=== PATIENT | male | born 1935 | race Caucasian/White ===

== ENCOUNTER 2016-06-27 14:05 | Inpatient (IN) | payer OTHER, BC ==
--- NOTE | 2016-06-27 14:14 | PDOC ---
History of Present Illness - General History Source: Patient Exam Limitations: No Limitations - History of Present Illness Initial Comments: 06/27/16 14:33 The patient is a 81 year old male with a significant past medical history of restless leg, neuropathy, tardive dyskinesia, depression with agitation, and spinal stenosis, who presents to the ED accompanied with for weakness in the legs and arms bilaterally. Patient states the weakness first began yesterday. He denies fever, but is shown to have a temp of 99.9 degrees upon presentation. He denies chest pain, SOB, chills. He denies dysuria, frequency, hematuria. Past Surgical History: Hernia Repair (right inguinal hernia), cervical laminectomy PCP: Dr. Tae Cook <Paul Ruffin - Last Filed: 06/27/16 17:28> <Serge Vaughan - Last Filed: 06/27/16 18:23> - General Chief Complaint: Weakness Stated Complaint: WEAKNESS Time Seen by Provider: 06/27/16 14:14 Past History <Paul Ruffin - Last Filed: 06/27/16 17:28> - Past Medical History Anemia: No Asthma: No Cancer: No Cardiac Disorders: No CVA: No COPD: No CHF: No Dementia: No Diabetes: No GI Disorders: No Disorders: Yes (urinary incontinence) HTN: No Hypercholesterolemia: No Liver Disease: No Psychiatric Problems: Yes (DEPRESSION, TARDIVE DYSKINESIA) Seizures: No Thyroid Disease: No - Surgical History Abdominal Surgery: No Appendectomy: No Cardiac Surgery: No Cholecystectomy: No Gastric Stapling: No Lung Surgery: No Neurologic Surgery: No Orthopedic Surgery: Yes (UPPER BACK SURGERY 2009) - Immunization History Td Vaccination: Yes (2012) - Psycho/Social/Smoking Cessation Hx Anxiety: Yes Suicidal Ideation: No Smoking Status: No Smoking History: Former smoker Have you smoked in the past 12 months: No Number of Cigarettes Smoked Daily: 0 If you are a former smoker, when did you quit?: 1989 Hx Alcohol Use: No Drug/Substance Use Hx: No Substance Use Type: None Hx Substance Use Treatment: No <Serge Vaughan - Last Filed: 06/27/16 18:23> - Past Medical History Allergies/Adverse Reactions: Allergies Allergy/AdvReac Type Severity Reaction Status Date / Time No Known Allergies Allergy Verified 06/27/16 14:08 Home Medications: Ambulatory Orders Gabapentin 600 mg PO TID 06/20/14 Lorazepam [Ativan] 0.5 mg PO HS 06/20/14 Multivitamins [Multivit ([facility] Formulary)] 1 tab PO DAILY 06/20/14 Tetrabenazine [Xenazine] 25 mg PO BID 06/20/14 Review of Systems - Review of Systems Comments:: 06/27/16 14:38 GENERAL/CONSTITUTIONAL: No chills. + weakness in arms and legs bilaterally. HEAD, EYES, EARS, NOSE AND THROAT: No change in vision. No ear pain or discharge. No sore throat. CARDIOVASCULAR: No chest pain or shortness of breath. RESPIRATORY: No cough, wheezing, or hemoptysis. GASTROINTESTINAL: No nausea, vomiting, diarrhea or constipation. GENITOURINARY: No dysuria, frequency, or change in urination. MUSCULOSKELETAL: No joint or muscle swelling or pain. No neck or back pain. SKIN: No rash NEUROLOGIC: No headache, vertigo, loss of consciousness, or change in strength/ sensation. ENDOCRINE: No increased thirst. No abnormal weight change. HEMATOLOGIC/LYMPHATIC: No anemia, easy bleeding, or history of blood clots. ALLERGIC/IMMUNOLOGIC: No hives or skin allergy. <Paul Ruffin - Last Filed: 06/27/16 17:28> *Physical Exam - Vital Signs Last Vital Signs Temp Pulse Resp BP Pulse Ox 99.9 F H 86 18 113/73 95 06/27/16 14:11 06/27/16 14:11 06/27/16 14:11 06/27/16 14:11 06/27/16 14:11 - Physical Exam Comments: 06/27/16 14:39 GENERAL: Awake, alert, and fully oriented, in no acute distress HEAD: No signs of trauma EYES: PERRLA, EOMI, sclera anicteric, conjunctiva clear. Arcus senilis ENT: Auricles normal inspection, hearing grossly normal, nares patent, oropharynx clear without exudates. Moist mucosa NECK: Normal ROM, supple, no lymphadenopathy, JVD, or masses LUNGS: Breath sounds equal, clear to auscultation bilaterally. No wheezes, and no crackles HEART: Regular rate and rhythm, normal S1 and S2, no murmurs, rubs or gallops ABDOMEN: Soft, nontender, normoactive bowel sounds. No guarding, no rebound. No masses EXTREMITIES: Normal range of motion, no edema. No clubbing or cyanosis. No cords, erythema, or tenderness NEUROLOGICAL: Cranial nerves II through XII grossly intact. No focal deficits. Normal speech, normal gait SKIN: Warm, Dry, normal turgor, no rashes or lesions noted. <Paul Ruffin - Last Filed: 06/27/16 17:28> Heart Score/ECG Review - ECG Intrepretation Comment:: 06/27/16 14:40 Unchanged from 12/11/14 Right bundle branch block. Rate of 79 T-wave inversions in the inferior lateral leads. <Paul Ruffin - Last Filed: 06/27/16 17:28> ED Treatment Course - LABORATORY CBC & Chemistry Diagram: 06/27/16 14:45 06/27/16 14:45 - RADIOLOGY Radiology Studies Ordered: 06/27/16 15:23 EXAM#: TYPE/EXAM: RESULT: [id number] RAD/CHEST X-RAY PORTABLE* Chest: Weakness A single view reveals scoliosis with convexity to the right, prominent heart, unfolded aorta, hiatal hernia, mamillation right hemidiaphragm with elevation and no sign of an acute chest process. There is suggestion of old rib trauma. Since 12/11/2014, there is a better inspiration and slightly less prominent mediastinum. The hiatal hernia appears smaller. <Paul Ruffin - Last Filed: 06/27/16 17:28> - LABORATORY CBC & Chemistry Diagram: 06/27/16 14:45 06/27/16 14:45 - ADDITIONAL ORDERS Additional order review: 06/27/16 18:[address] Cook, will admit pt for urosepsis. Family is in agreement with plan, FLU negative. <Serge Vaughan - Last Filed: 06/27/16 18:23> Medical Decision Making - Medical Decision Making 06/27/16 16:[address] Tae Cook. <Paul Ruffin - Last Filed: 06/27/16 17:28> *DC/Admit/Observation/Transfer - Attestations Scribe Attestion: 06/27/16 14:40 Documentation prepared by Paul Ruffin, acting as medical oncology physician for Serge Vaughan MD. <Paul Ruffin - Last Filed: 06/27/16 17:28> - Discharge Dispostion Admit: Yes <Serge Vaughan - Last Filed: 06/27/16 18:23> Diagnosis at time of Disposition: Sepsis due to urinary tract infection UTI (urinary tract infection) Qualifiers: Urinary tract infection type: acute cystitis Hematuria presence: without hematuria Qualified Code(s): N30.00 - Acute cystitis without hematuria Fever Qualifiers: Fever type: unspecified Qualified Code(s): R50.9 - Fever, unspecified - Discharge Dispostion Condition at time of disposition: Stable - Referrals Referrals: Tae Cook MD [Primary Care Provider] -
[2016-06-27 14:18] VITALS: BMI 20.3
[2016-06-27] MEDS ORDERED: SODIUM CHLORIDE 1,000 ML IV SCH (14:30)
[2016-06-27 15:23] LABS: BASOPHIL 1.2 % (0-2.0); EOSINOPHIL 0.2 % (0-4.5); MCH 27.8 pg (25.7-33.7); MCHC 32.4 g/dl (32.0-35.9); MEAN CELL VOLUME 85.9 fl (80-96); MEAN PLT VOLUME 9.9 fl (7.5-11.1); NEUTROPHILS 89.8 % (42.8-82.8); PLATELET COUNT 152 K/MM3 (134-434); WHITE BLOOD COUNT 13.2 K/mm3 (4.0-10.8)
[2016-06-27 15:27] LABS: ALBUMIN 3.5 g/dl (3.5-5.0); ALK PHOS 67 U/L (32-92); ANION GAP 10 (8-16); BILIRUBIN,TOTAL 0.8 mg/dl (0.2-1.0); CALCIUM 9.8 mg/dl (8.4-10.2); CO2 22 mmol/L (22-28); CPK(DFH) 70 IU/L (38-174); CREATININE 1.4 mg/dl (0.6-1.3); GLUCOSE,RANDOM 95 mg/dl (74-106); SGOT/AST 19 U/L (10-42); SGPT/ALT 10 U/L (10-40); TOT PROT 6.4 g/dl (6.4-8.3)
[2016-06-27 15:39] LABS: COCKROFT - GAULT NT
[2016-06-27 16:09] LABS: TROPONIN I (DFP) < 0.03 ng/ml (0.03-0.50)
[2016-06-27] MEDS ORDERED: ACETAMINOPHEN 650 MG/20.3 ML ORAL SOLUTION (CUPS) PO ONE (16:17)
[2016-06-27] MEDS ORDERED: ACETAMINOPHEN 325 MG TABLET (FP) ONE (16:26)
[2016-06-27 17:10] LABS: PH,URINE 5.5 (4.5-8); URINE BILIRUBIN Negative (NEGATIVE); URINE GLUCOSE (UA) Negative (NEGATIVE); URINE KETONE Trace (NEGATIVE); URINE NITRITE Negative (NEGATIVE); URINE UROBILINOGEN 0.2 E.U/dl (0.2-1.0)
[2016-06-27 17:20] LABS: URINE APPEARANCE SL CLOUDY; URINE BLOOD 2+ (NEGATIVE); URINE COLOR YELLOW; URINE LEUK ESTERASE 1+ (NEGATIVE); URINE PROTEIN 1+ (NEGATIVE)
[2016-06-27 17:30] LABS: URINE RBC 20-30 /hpf (0-3)
[2016-06-27 17:31] LABS: URINE BACTERIA MODERATE /hpf (NEGATIVE)
[2016-06-27] MEDS ORDERED: LEVOFLOXACIN 500 MG IVPB 100 ML IVPB ONE ×2 (17:53→18:09)
--- NOTE | 2016-06-27 19:39 | PDOC ---
*Physical Exam - Vital Signs Last Vital Signs Temp Pulse Resp BP Pulse Ox 98.5 F 89 20 106/66 96 06/27/16 19:10 06/27/16 19:10 06/27/16 19:10 06/27/16 19:10 06/27/16 19:10 ED Treatment Course - LABORATORY CBC & Chemistry Diagram: 06/27/16 14:45 06/27/16 14:45 - ADDITIONAL ORDERS Additional order review: Laboratory Results 06/27/16 06/27/16 06/27/16 16:40 14:45 14:45 Sodium Potassium Chloride Carbon Dioxide Anion Gap BUN Creatinine Creat Clearance w eGFR Random Glucose Lactic Acid 1.365 Calcium Total Bilirubin AST ALT Alkaline Phosphatase Creatine Kinase 70 Troponin I < 0.03 L Total Protein Albumin Urine Color Yellow Urine Appearance Sl cloudy Urine pH 5.5 D Ur Specific [place] 1.015 Urine Protein 1+ H Urine Glucose (UA) Negative Urine Ketones Trace Urine Blood 2+ H Urine Nitrite Negative Urine Bilirubin Negative Urine Urobilinogen 0.2 e.u/dl Ur Leukocyte Esterase 1+ H Urine RBC 20-30 Urine WBC 10-20 Ur Epithelial Cells Few Amorphous Urates Few Urine Bacteria Moderate 06/27/16 14:45 Sodium 138 Potassium 4.2 Chloride 106 Carbon Dioxide 22 Anion Gap 10 BUN 16 D Creatinine 1.4 H Creat Clearance w eGFR 48.64 Random Glucose 95 D Lactic Acid Calcium 9.8 Total Bilirubin 0.8 D AST 19 D ALT 10 D Alkaline Phosphatase 67 Creatine Kinase Troponin I Total Protein 6.4 Albumin 3.5 Urine Color Urine Appearance Urine pH Ur Specific [place] Urine Protein Urine Glucose (UA) Urine Ketones Urine Blood Urine Nitrite Urine Bilirubin Urine Urobilinogen Ur Leukocyte Esterase Urine RBC Urine WBC Ur Epithelial Cells Amorphous Urates Urine Bacteria 06/27/16 16:30 Influenza Types A,B Antigen (MORALES) - Final Nasopharyngeal Swab - Final 06/27/16 14:45 RBC 4.67 MCV 85.9 MCHC 32.4 RDW 17.0 H D MPV 9.9 Neutrophils % 89.8 H Lymphocytes % 3.1 L D Monocytes % 5.7 D Eosinophils % 0.2 D Basophils % 1.2 D - Medications Given in the ED: ED Medications Discontinued Medications Generic Name Dose Route Start Last Admin Trade Name Freq PRN Reason Stop Dose Admin Acetaminophen 650 mg 06/27/16 16:17 06/27/16 16:32 Tylenol Oral Solution - PO 06/27/16 16:18 650 mg ONCE ONE Administration Levofloxacin 100 mls @ 100 mls/hr 06/27/16 17:53 06/27/16 18:13 Levaquin 500 Mg Premixed Ivpb - IVPB 06/27/16 18:52 100 mls/hr ONCE ONE Administration Progress Note - Progress Note Progress Note: Care of this patient received from Dr. Vaughan. Patient admitted to Dr Cook's service with urosepsis. At approximately 9PM, patient complained of difficulty breathing and expiratory wheezing heard bilaterally. portable CXR performed showing small right pleural effusion/ cardiomegaly and atelectasis vs infiltrate left base Although the patient has no history of asthma, albuterol nebulizer treatment given. Patient had subsequent resolution of wheezing The patient takes Ativan nightly. He was given 0.5mg Ativan for anxiety/ agitation. Patient developed fever to 102.9 Fahrenheit. Patient received 975mg Acetaminophen and Vancomycin 1 g IV administered as per Dr Cook Medical Decision Making - Medical Decision Making 06/28/16 04:17 Patient sleeping comfortably. HR 75/min; sat 95%; BP83/56 Bolus of 250ml NS IV over 1 hour to be given *DC/Admit/Observation/Transfer Diagnosis at time of Disposition: Sepsis due to urinary tract infection UTI (urinary tract infection) Qualifiers: Urinary tract infection type: acute cystitis Hematuria presence: without hematuria Qualified Code(s): N30.00 - Acute cystitis without hematuria Fever Qualifiers: Fever type: unspecified Qualified Code(s): R50.9 - Fever, unspecified - Discharge Dispostion Condition at time of disposition: Stable - Referrals - Patient Instructions - Post Discharge Activity
[2016-06-27] MEDS: SODIUM CHLORIDE 1,000 ML IV SCH (19:45)
[2016-06-27] MEDS ORDERED: ALBUTEROL SO4 0.5 % INH SOLN 2.5 MG/0.5 ML VIAL.NEB. NEB ONE (21:08)
[2016-06-27] MEDS ORDERED: ALBUTEROL SO4 0.083% IH SOL 2.5 MG/3 ML VIAL.NEB. NEB ONE (21:08)
[2016-06-27] MEDS ORDERED: LORazepam 0.5 MG TABLET PO ONE (22:02)
[2016-06-27] MEDS ORDERED: LORazepam 0.5 MG TABLET ONE (22:03)
[2016-06-27] MEDS ORDERED: VANCOMYCIN 1 GRAM (PRE-DOCKED) 1,000 MG/250 ML BAG IVPB ONE (22:47)
[2016-06-27] MEDS ORDERED: ACETAMINOPHEN 500 MG TABLET (FP) PO ONE (22:57)
[2016-06-27] MEDS ORDERED: ACETAMINOPHEN 325 MG TABLET (FP) PO PRN (23:04)
--- NOTE | 2016-06-27 23:21 | HP ---
Admitting History and Physical - Primary Care Physician PCP: Tae Cook - Admission Chief Complaint: Generalized weaknes and fatigue x1-2 days History of Present Illness: *81 y/o male with hx of Shannon dz and chronic depression, presented to [facility] ER with 1-2 days hx of progressive weakness and inability to ambulate or weight bear. Decreased appetite, but no nausea or emesis. Denies dysuria, urgency, frequency, flank pain, cough, dyspnea, wheezing or chest pain. No fever /chills. History Source: Patient Limitations to Obtaining History: No Limitations - Past Medical History [employer]: Yes: Peripheral Neuropathy, Other (Shannon dz) Renal/: Yes: Other (urge incontinence) Psych: Yes: Anxiety, Depression - Past Surgical History Past Surgical History: Yes: Hernia Repair (right inguinal hernia) Additional Past Surgical History: Cervical fusion-2009 - Smoking History Smoking history: Former smoker Have you smoked in the past 12 months: No Aproximately how many cigarettes per day: 0 If you are a former smoker, when did you quit?: 1989 - Alcohol/Substance Use Hx Alcohol Use: No History of Substance Use: reports: None - Social History ADL: Independent History of Recent Travel: No Home Medications - Allergies Allergies/Adverse Reactions: Allergies Allergy/AdvReac Type Severity Reaction Status Date / Time No Known Allergies Allergy Verified 06/27/16 14:08 - Home Medications Home Medications: Ambulatory Orders Gabapentin 600 mg PO TID 06/20/14 Lorazepam [Ativan] 0.5 mg PO HS 06/20/14 Multivitamins [Multivit ([facility] Formulary)] 1 tab PO DAILY 06/20/14 Tetrabenazine [Xenazine] 25 mg PO BID 06/20/14 Family Disease History - Family Disease History Family Disease History: Diabetes: Father Review of Systems - Review of Systems Constitutional: reports: Malaise, Weakness Musculoskeletal: reports: Muscle Weakness Neurological: reports: Unsteady Gait Psychiatric: reports: Anxiety, Depression Physical Examination Vital Signs: Vital Signs Temperature 102.9 F H 06/27/16 22:57 Pulse Rate 108 H 06/27/16 21:31 Respiratory Rate 16 06/27/16 21:31 Blood Pressure 107/64 06/27/16 21:31 O2 Sat by Pulse Oximetry (%) 95 06/27/16 21:31 Constitutional: Yes: Anxious, Cachectic Eyes: Yes: Conjunctiva Clear, EOM Intact HENT: Yes: Normocephalic Neck: Yes: Supple, Trachea Midline Cardiovascular: Yes: Regular Rate and Rhythm Respiratory: Yes: Regular, CTA Bilaterally Gastrointestinal: Yes: Normal Bowel Sounds, Soft Renal/: Yes: WNL, Other (No CVAT) Musculoskeletal: Yes: Muscle Weakness, Other (Ulnar deviation fingers) Edema: No Integumentary: Yes: WNL Neurological: Yes: Alert, Oriented, Loss of Sensation (lower extremitiies), Weakness Psychiatric: Yes: Alert, Oriented Imaging - Results Chest X-ray: Report Reviewed, Image Reviewed Problem List - Problems (1) Fever Code(s): R50.9 - FEVER, UNSPECIFIED Qualifiers: Fever type: unspecified Qualified Code(s): R50.9 - Fever, unspecified (2) Sepsis due to urinary tract infection Code(s): A41.9 - SEPSIS, UNSPECIFIED ORGANISM N39.0 - URINARY TRACT INFECTION, SITE NOT SPECIFIED (3) UTI (urinary tract infection) Code(s): N39.0 - URINARY TRACT INFECTION, SITE NOT SPECIFIED Qualifiers: Urinary tract infection type: acute cystitis Hematuria presence: without hematuria Qualified Code(s): N30.00 - Acute cystitis without hematuria (4) Generally unsteady Code(s): R26.81 - UNSTEADINESS ON FEET (5) Depression Code(s): F32.9 - MAJOR DEPRESSIVE DISORDER, SINGLE EPISODE, UNSPECIFIED (6) Azotemia Code(s): R79.89 - OTHER SPECIFIED ABNORMAL FINDINGS OF BLOOD CHEMISTRY Assessment/Plan 1)-IV emperic Ab 2)-Lyons cultures 3)-ID evaluation 4)-Continue all home medications 5)-VTE prophylaxis 6)-Serial labs
[2016-06-28] MEDS ORDERED: SODIUM CHLORIDE 250 ML IV STA (04:17)
[2016-06-28] MEDS: GABAPENTIN 300 MG CAPSULE (FP) PO SCH ×3 (05:58→21:43)
[2016-06-28 06:48] LABS: BASOPHIL 0.6 % (0-2.0); MCH 26.6 pg (25.7-33.7); MCHC 31.5 g/dl (32.0-35.9); MEAN CELL VOLUME 84.5 fl (80-96); MEAN PLT VOLUME 9.1 fl (7.5-11.1); NEUTROPHILS 88.8 % (42.8-82.8); PLATELET COUNT 107 K/MM3 (134-434); RDW 17.8 % (11.9-15.9); WHITE BLOOD COUNT 7.4 K/mm3 (4.0-10.0)
[2016-06-28 08:08] LABS: ALBUMIN 2.6 g/dl (3.4-5.0); BILIRUBIN,TOTAL 0.3 mg/dL (0.2-1.0); COCKROFT - GAULT 39.82; CREATININE 1.4 mg/dL (0.7-1.3); TOT PROT 5.2 g/dl (6.4-8.2)
[2016-06-28] MEDS: ENOXAPARIN NA (PORCINE) 30 MG/0.3 ML DISP.SYRIN SQ SCH (09:03)
[2016-06-28] MEDS ORDERED: LEVOFLOXACIN 500 MG IVPB 100 ML IVPB SCH (10:00)
[2016-06-28] MEDS ORDERED: LEVOFLOXACIN 250 MG IVPB 50 ML IVPB SCH (10:00)
--- NOTE | 2016-06-28 10:22 | EKG ---
Test Reason : Blood Pressure : / mmHG Vent. Rate : 079 BPM Atrial Rate : 079 BPM P-R Int : 136 ms QRS Dur : 150 ms QT Int : 396 ms P-R-T Axes : 041 073 -23 degrees QTc Int : 454 ms NORMAL SINUS RHYTHM RIGHT BUNDLE BRANCH BLOCK T WAVE ABNORMALITY, CONSIDER INFEROLATERAL ISCHEMIA ABNORMAL ECG NO PREVIOUS ECGS AVAILABLE Confirmed by COREY BLANCA MD ([id number]) on 06/28/2016 10:22:02 AM Referred By: MIRI GE Confirmed By:COREY BLANCA MD
--- NOTE | 2016-06-28 10:43 | PN ---
Progress Note (short form) - Note Progress Note: ID Consult dictated Community acquired v. atypical pneumonia RLL Possible sepsis Azotemia Tardive dyskinesias Await c/s Empiric zithromax/ ceftriaxone
[2016-06-28] MEDS ORDERED: CEFTRIAXONE 100 ML IVPB SCH (11:15)
--- NOTE | 2016-06-28 12:06 | CONS ---
DATE OF CONSULTATION: HISTORY: The patient is an 81-year-old male evaluated for fever. He was admitted to the hospital with a 1- to 2-day history of generalized weakness. The patient reports that he normally ambulates with a walker. He had been increasingly weak over the past 1-2 days prior to admission and reports having fallen. He denies any significant trauma. He denies any head trauma. He was admitted to the hospital where his course was complicated by fever to 102.9 and dyspnea. Chest x-ray shows a right pleural effusion, possible infiltrate. He denies any significant cough. No complaints of chest pain or dyspnea. No hemoptysis. He denies any vomiting or diarrhea. No loss of consciousness. No dysuria or hematuria. He denies any recent hospital admissions. PAST MEDICAL HISTORY: Positive for tardive dyskinesias, history of restless leg syndrome, peripheral neuropathy, depression, spinal stenosis. PAST SURGICAL HISTORY: Status post right inguinal hernia and laminectomy. ALLERGIES: No known allergies. MEDICATIONS: Include Neurontin and Ativan. SOCIAL HISTORY: He lives at home. He lives with his who he reports is well. He is a former smoker. He stopped as a young man. SYSTEMS REVIEW: Neurologic: Positive for tardive dyskinesias and restless leg syndrome. Cardiac: Negative chest pain or palpitations. Respiratory: As per HPI. Gastrointestinal: Negative vomiting or diarrhea. Genitourinary: Negative for urinary tract infection. LABORATORY DATA: White count on admission 13.2, presently 7.4, hematocrit 35.1, platelet count 107, creatinine 1.4. Urinalysis 10-20 white cells. Chest x-ray shows right pleural effusion, possible infiltrate. Influenza swab negative. Blood cultures pending. PHYSICAL EXAMINATION: General: He is an elderly male. He is awake and alert. He appears weak. He is in no acute distress. Not acutely toxic appearing. Vital Signs: Temperature 98.7, T-max 102.9, blood pressure 106/62, pulse 72 and regular, respirations 18 per minute. HEENT: Sclerae anicteric. Dry mucous membranes. Heart: Sounds S1, S2. Lungs: Crepitations at the right base greater than left base. Scattered rhonchi. Abdomen: Soft. No tenderness elicited. No mass, rebound, or rigidity. Extremities: Negative for edema. IMPRESSION: 1. Community-acquired versus atypical right lower lobe pneumonia. 2. Possible sepsis secondary to pneumonia. 3. Leukocytosis. 4. Status post fall. PLAN: Await culture results. Obtain sputum culture, urine Legionella, and pneumococcal antigens. Empiric antibiotic coverage with Zithromax and ceftriaxone pending sepsis workup. We will follow. Thank you for the kind referral. BALAJI COBB M.D. [id number]
[2016-06-28] MEDS ORDERED: ALBUTEROL SO4 0.083% IH SOL 2.5 MG/3 ML VIAL.NEB. NEB PRN (14:04)
[2016-06-28] MEDS: LORazepam 0.5 MG TABLET PO SCH (21:43)
[2016-06-28] MEDS: SODIUM CHLORIDE 1,000 ML IV SCH (21:43)
--- NOTE | 2016-06-28 23:46 | PN ---
Progress Note, Physician Chief Complaint: Fever and weakness History of Present Illness: Patient without any significant change. Mild cough. Denies /GI sx. Continues to run a fever with stable viral signs. Denies dyspnea or chest pain. No new sx. - Current Medication List Current Medications: Active Medications Acetaminophen (Tylenol -) 650 mg PO Q6H PRN PRN Reason: FEVER OR PAIN Last Admin: 06/28/16 13:30 Dose: 650 mg Albuterol Sulfate (Ventolin 0.083% Nebulizer Soln -) 1 amp NEB Q4H PRN PRN Reason: SHORT OF BREATH/WHEEZING Last Admin: 06/28/16 14:20 Dose: 1 amp Enoxaparin Sodium (Lovenox -) 40 mg SQ DAILY [facility] Gabapentin (Neurontin -) 600 mg PO TID [facility] Last Admin: 06/28/16 21:43 Dose: 600 mg Sodium Chloride (Normal Saline -) 1,000 mls @ 125 mls/hr IV ASDIR [facility] Last Admin: 06/27/16 15:00 Dose: 125 mls/hr Sodium Chloride (Normal Saline -) 1,000 mls @ 150 mls/hr IV ASDIR [facility] Last Admin: 06/28/16 21:43 Dose: Not Given Azithromycin (Zithromax 500mg Ivpb (Pre-Docked)) 250 mls @ 250 mls/hr IVPB DAILY [facility] Ceftriaxone Sodium (Rocephin 2gm Ivpb (Pre-Docked)) 100 mls @ 200 mls/hr IVPB DAILY [facility] Lorazepam (Ativan -) 0.5 mg PO DAILY [facility] Last Admin: 06/28/16 21:43 Dose: 0.5 mg - Objective Vital Signs: Vital Signs Temperature 98.9 F 06/28/16 19:59 Pulse Rate 70 06/28/16 22:22 Respiratory Rate 19 06/28/16 22:22 Blood Pressure 95/55 06/28/16 22:22 O2 Sat by Pulse Oximetry (%) 95 06/28/16 22:22 Constitutional: Yes: No Distress, Calm, Cachectic Eyes: Yes: Conjunctiva Clear, EOM Intact HENT: Yes: Atraumatic, Normocephalic Neck: Yes: Supple, Trachea Midline Cardiovascular: Yes: Regular Rate and Rhythm Respiratory: Yes: Regular, CTA Bilaterally (Decreased breath sounds R base) Gastrointestinal: Yes: Normal Bowel Sounds, Soft Genitourinary: Yes: WNL Musculoskeletal: Yes: Joint Stiffness Extremities: Yes: Deformity Edema: No Integumentary: Yes: WNL Neurological: Yes: Alert (tardive dyskinetic movements), Oriented Psychiatric: Yes: Alert, Oriented Labs: CBC, BMP 06/28/16 06:05 06/28/16 06:05 Influenza screen-negative Urine C/S-pending Blood C/S-negative 24 hrs - ....Imaging Chest X-ray: Report Reviewed, Image Reviewed (RLL effusion/infiltrate) Problem List - Problems (1) Fever Code(s): R50.9 - FEVER, UNSPECIFIED Qualifiers: Fever type: unspecified Qualified Code(s): R50.9 - Fever, unspecified (2) Generally unsteady Code(s): R26.81 - UNSTEADINESS ON FEET (3) Depression Code(s): F32.9 - MAJOR DEPRESSIVE DISORDER, SINGLE EPISODE, UNSPECIFIED (4) CAP (community acquired pneumonia) Code(s): J18.9 - PNEUMONIA, UNSPECIFIED ORGANISM (5) Azotemia Code(s): R79.89 - OTHER SPECIFIED ABNORMAL FINDINGS OF BLOOD CHEMISTRY Assessment/Plan 1)-Evaluated by ID and felt to have RLL CAP. IV Ab changed to Rocephin/ Zithromax. 2)-Check final culture results 3)-Add urinary pneumonia antigens 4)-Serial labs 5)-PT started
[2016-06-29] MEDS: GABAPENTIN 300 MG CAPSULE (FP) PO SCH ×3 (06:44→21:28)
[2016-06-29 08:53] LABS: BASOPHIL 0.1 % (0-2.0); MCH 28.7 pg (25.7-33.7); MCHC 32.9 g/dl (32.0-35.9); MEAN CELL VOLUME 87.4 fl (80-96); NEUTROPHILS 77.1 % (42.8-82.8); PLATELET COUNT 106 K/MM3 (134-434); RDW 17.4 % (11.9-15.9); WHITE BLOOD COUNT 6.6 K/mm3 (4.0-10.8)
[2016-06-29 09:10] LABS: ALBUMIN 2.4 g/dl (3.5-5.0); CALCIUM 8.3 mg/dl (8.4-10.2); COCKROFT - GAULT 46.46; CREATININE 1.2 mg/dl (0.6-1.3); TOT PROT 5.1 g/dl (6.4-8.3)
--- NOTE | 2016-06-29 09:56 | PN ---
Progress Note, Physician History of Present Illness: OOB in chair C/O generalized weakness No c/o chest pain/ dyspnea/ cough No c/o fever/ chills Temps down- afebrile WBC improved - Current Medication List Current Medications: Active Medications Acetaminophen (Tylenol -) 650 mg PO Q6H PRN PRN Reason: FEVER OR PAIN Last Admin: 06/28/16 13:30 Dose: 650 mg Albuterol Sulfate (Ventolin 0.083% Nebulizer Soln -) 1 amp NEB Q4H PRN PRN Reason: SHORT OF BREATH/WHEEZING Last Admin: 06/28/16 14:20 Dose: 1 amp Enoxaparin Sodium (Lovenox -) 40 mg SQ DAILY [facility] Last Admin: 06/28/16 09:03 Dose: 40 mg Gabapentin (Neurontin -) 600 mg PO TID [facility] Last Admin: 06/29/16 06:44 Dose: 600 mg Sodium Chloride (Normal Saline -) 1,000 mls @ 125 mls/hr IV ASDIR [facility] Last Admin: 06/27/16 15:00 Dose: 125 mls/hr Sodium Chloride (Normal Saline -) 1,000 mls @ 150 mls/hr IV ASDIR [facility] Last Admin: 06/28/16 21:43 Dose: Not Given Azithromycin (Zithromax 500mg Ivpb (Pre-Docked)) 250 mls @ 250 mls/hr IVPB DAILY [facility] Ceftriaxone Sodium (Rocephin 2gm Ivpb (Pre-Docked)) 100 mls @ 200 mls/hr IVPB DAILY [facility] Lorazepam (Ativan -) 0.5 mg PO DAILY [facility] Last Admin: 06/28/16 21:43 Dose: 0.5 mg - Objective Vital Signs: Vital Signs Temperature 99.3 F 06/29/16 06:11 Pulse Rate 69 06/29/16 06:11 Respiratory Rate 17 06/29/16 07:39 Blood Pressure 100/55 06/29/16 06:11 O2 Sat by Pulse Oximetry (%) 95 06/29/16 07:39 Constitutional: Yes: No Distress, Thin Eyes: Yes: Conjunctiva Clear Cardiovascular: Yes: Regular Rate and Rhythm, S1, S2 Respiratory: Yes: Other (crepitations bases bilaterally) Gastrointestinal: Yes: Normal Bowel Sounds, Soft. No: Tenderness Edema: No Labs: CBC, BMP 06/29/16 08:20 06/29/16 07:36 Assessment/Plan Pneumonia Possible sepsis secondary to pneumonia Leukocytosis- resolved Azotemia improved Continue empiric zithromax/ ceftriaxone PT
[2016-06-29] MEDS: AZITHROMYCIN IVPB 250 ML IVPB SCH (10:00)
[2016-06-29] MEDS: LORazepam 0.5 MG TABLET PO SCH (10:00)
[2016-06-29] MEDS: ENOXAPARIN NA (PORCINE) 30 MG/0.3 ML DISP.SYRIN SQ SCH (10:00)
--- NOTE | 2016-06-29 21:30 | PN ---
Progress Note, Physician History of Present Illness: Appears stronger today. Doing daily PT-weak and unstable. States that his appetite is good, but nursing staff reports that it is fair only. Denies CP or dyspnea. Cough improved. No fever/chills today. - Current Medication List Current Medications: Active Medications Acetaminophen (Tylenol -) 650 mg PO Q6H PRN PRN Reason: FEVER OR PAIN Last Admin: 06/28/16 13:30 Dose: 650 mg Albuterol Sulfate (Ventolin 0.083% Nebulizer Soln -) 1 amp NEB Q4H PRN PRN Reason: SHORT OF BREATH/WHEEZING Last Admin: 06/28/16 14:20 Dose: 1 amp Enoxaparin Sodium (Lovenox -) 40 mg SQ DAILY [facility] Last Admin: 06/29/16 10:00 Dose: 40 mg Gabapentin (Neurontin -) 600 mg PO TID [facility] Last Admin: 06/29/16 13:36 Dose: 600 mg Sodium Chloride (Normal Saline -) 1,000 mls @ 125 mls/hr IV ASDIR [facility] Last Admin: 06/27/16 15:00 Dose: 125 mls/hr Sodium Chloride (Normal Saline -) 1,000 mls @ 150 mls/hr IV ASDIR [facility] Last Admin: 06/28/16 21:43 Dose: Not Given Azithromycin (Zithromax 500mg Ivpb (Pre-Docked)) 250 mls @ 250 mls/hr IVPB DAILY [facility] Last Admin: 06/29/16 10:00 Dose: 250 mls/hr Ceftriaxone Sodium (Rocephin 2gm Ivpb (Pre-Docked)) 100 mls @ 200 mls/hr IVPB DAILY [facility] Last Admin: 06/29/16 09:30 Dose: 200 mls/hr Lorazepam (Ativan -) 0.5 mg PO DAILY [facility] Last Admin: 06/29/16 10:00 Dose: 0.5 mg - Objective Vital Signs: Vital Signs Temperature 97.2 F L 06/29/16 20:12 Pulse Rate 90 06/29/16 20:12 Respiratory Rate 18 06/29/16 20:12 Blood Pressure 97/57 06/29/16 20:12 O2 Sat by Pulse Oximetry (%) 96 06/29/16 20:14 Constitutional: Yes: No Distress, Calm, Cachectic Eyes: Yes: Conjunctiva Clear, EOM Intact HENT: Yes: Atraumatic, Normocephalic Neck: Yes: Supple, Trachea Midline Cardiovascular: Yes: Regular Rate and Rhythm Respiratory: Yes: Other (Decresed breath sounds R base, Bilateral rales at bases ) Genitourinary: Yes: WNL Musculoskeletal: Yes: Joint Stiffness, Muscle Weakness Extremities: Yes: Deformity (hands) Edema: No Integumentary: Yes: WNL Neurological: Yes: Alert, Oriented, Weakness, Other (TD movements) Labs: CBC, BMP 06/29/16 08:20 06/29/16 07:36 Blood cultures-(-) Urine culture-(-) Problem List - Problems (1) Fever Code(s): R50.9 - FEVER, UNSPECIFIED Qualifiers: Fever type: unspecified Qualified Code(s): R50.9 - Fever, unspecified (2) Generally unsteady Code(s): R26.81 - UNSTEADINESS ON FEET (3) Depression Code(s): F32.9 - MAJOR DEPRESSIVE DISORDER, SINGLE EPISODE, UNSPECIFIED (4) CAP (community acquired pneumonia) Code(s): J18.9 - PNEUMONIA, UNSPECIFIED ORGANISM (5) Azotemia Code(s): R79.89 - OTHER SPECIFIED ABNORMAL FINDINGS OF BLOOD CHEMISTRY Assessment/Plan 1)-Decrease IV fluids 2)-Continue IV Ab 3)-Serial labs 4)-Contiue PT
[2016-06-29] MEDS ORDERED: POTASSIUM CHLORIDE 10 MEQ in SODIUM CHLORIDE 1,000 ML IVPB SCH (22:00)
[2016-06-30] MEDS: GABAPENTIN 300 MG CAPSULE (FP) PO SCH (06:03)
[2016-06-30 06:17] VITALS: BP 97/58; PULSE 73; TEMP 98.7
[2016-06-30 08:21] LABS: BASOPHIL 0.5 % (0-2.0); EOSINOPHIL 3.2 % (0-4.5); MCH 28.7 pg (25.7-33.7); MCHC 32.6 g/dl (32.0-35.9); MEAN CELL VOLUME 88.2 fl (80-96); MEAN PLT VOLUME 9.8 fl (7.5-11.1); NEUTROPHILS 71.2 % (42.8-82.8); PLATELET COUNT 134 K/MM3 (134-434); RDW 17.3 % (11.9-15.9)
[2016-06-30 08:40] LABS: CALCIUM 8.2 mg/dl (8.4-10.2); COCKROFT - GAULT 42.88; CREATININE 1.3 mg/dl (0.6-1.3)
[2016-06-30] MEDS: AZITHROMYCIN IVPB 250 ML IVPB SCH (09:00)
[2016-06-30] MEDS: ENOXAPARIN NA (PORCINE) 30 MG/0.3 ML DISP.SYRIN SQ SCH (09:17)
--- NOTE | 2016-06-30 09:42 | PN ---
Progress Note, Physician History of Present Illness: OOB in chair More awake, alert, energetic appearing No c/o chest pain/ dyspnea/ cough Temps down- afebrile WBC WNL Flu screen negative - Current Medication List Current Medications: Active Medications Acetaminophen (Tylenol -) 650 mg PO Q6H PRN PRN Reason: FEVER OR PAIN Last Admin: 06/28/16 13:30 Dose: 650 mg Albuterol Sulfate (Ventolin 0.083% Nebulizer Soln -) 1 amp NEB Q4H PRN PRN Reason: SHORT OF BREATH/WHEEZING Last Admin: 06/28/16 14:20 Dose: 1 amp Enoxaparin Sodium (Lovenox -) 40 mg SQ DAILY [facility] Last Admin: 06/30/16 09:17 Dose: 40 mg Gabapentin (Neurontin -) 600 mg PO TID [facility] Last Admin: 06/30/16 06:03 Dose: 600 mg Azithromycin (Zithromax 500mg Ivpb (Pre-Docked)) 250 mls @ 250 mls/hr IVPB DAILY [facility] Last Admin: 06/30/16 09:00 Dose: 250 mls/hr Ceftriaxone Sodium (Rocephin 2gm Ivpb (Pre-Docked)) 100 mls @ 200 mls/hr IVPB DAILY [facility] Last Admin: 06/29/16 09:30 Dose: 200 mls/hr Potassium Chloride 10 meq/ (Sodium Chloride) 1,005 mls @ 75 mls/hr IVPB ASDIR [facility] Last Admin: 06/29/16 23:30 Dose: 75 mls/hr Lorazepam (Ativan -) 0.5 mg PO DAILY [facility] Last Admin: 06/29/16 10:00 Dose: 0.5 mg - Objective Vital Signs: Vital Signs Temperature 98.7 F 06/30/16 06:14 Pulse Rate 73 06/30/16 06:14 Respiratory Rate 16 06/30/16 08:11 Blood Pressure 97/58 06/30/16 06:14 O2 Sat by Pulse Oximetry (%) 95 06/30/16 08:11 Constitutional: Yes: No Distress Eyes: Yes: Conjunctiva Clear Cardiovascular: Yes: Regular Rate and Rhythm, S1, S2 Respiratory: Yes: CTA Bilaterally Gastrointestinal: Yes: Normal Bowel Sounds, Soft. No: Tenderness Edema: No Labs: CBC, BMP 06/30/16 07:34 06/30/16 07:34 Assessment/Plan Pneumonia clinically improved Possible sepsis secondary to pneumonia Leukocytosis- resolved Azotemia improved May substitute po levaquin 500mg daily x 7d PT
== END 2016-06-30 13:18 | disposition home or self-care (01) | DRG 871 ==
LOC: FER 14:05 → FM/S 20:32
PROVIDERS: ADMIT Family Medicine; ATTEND Family Medicine
DX: A41.9 Sepsis, unspecified organism (principal); J18.9 Pneumonia, unspecified organism; N39.0 Urinary tract infection, site not specified; G10 Huntington's disease; R64 Cachexia; F32.9 Major depressive disorder, single episode, unspecified; Z87.891 Personal history of nicotine dependence; R26.81 Unsteadiness on feet; G25.81 Restless legs syndrome; G62.9 Polyneuropathy, unspecified; Z68.20 Body mass index [BMI] 20.0-20.9, adult
CPT/HCPCS: 36415; 71010-TC; 80048; 80053; 81003; 81015; 82550; 83605; 84484; 85025; 87040; 87086; 87254; 87804; 93005; 94640; 97116-GP; 97162-PG; 99285-25

== ENCOUNTER 2020-09-12 14:43 | Inpatient (IN) | payer OTHER, BC ==
[2020-09-12] MEDS ORDERED: DIPHTH,PERTUSS(ACELL),TET 0.5 ML DISP.SYRIN IM ONE ×2 (15:59→16:05)
[2020-09-12 18:54] LABS: BASO % 0.7 % (0-2.0); EOS % 0.6 % (0-4.5); HEMATOCRIT 47.4 % (35.4-49); HEMOGLOBIN 15.6 GM/dL (11.7-16.9); MCHC 32.9 g/dl (32.0-35.9); MEAN CELL VOLUME 97.3 fl (80-96); MEAN PLT VOLUME 8.8 fl (7.5-11.1); MONO % 6.4 % (3.8-10.2); NEUT % 82.3 % (42.8-82.8); PLATELET COUNT 117 10^3/uL (134-434); RBC 4.87 M/mm3 (4.00-5.60); RDW 14.3 % (11.9-15.9); WHITE BLOOD COUNT 8.7 K/mm3 (4.0-10.0)
[2020-09-12 19:10] LABS: ALBUMIN 3.4 g/dl (3.4-5.0); BLOOD UREA NITROGEN 28.5 mg/dL (7-18); CALCIUM 8.7 mg/dL (8.5-10.1)
[2020-09-12 19:13] LABS: CREATININE 1.1 mg/dL (0.55-1.3)
[2020-09-12 19:15] LABS: BILIRUBIN,TOTAL 0.5 mg/dL (0.2-1); TOT PROT 6.6 g/dl (6.4-8.2)
[2020-09-12 21:31] LABS: EPI CELLS 6 /uL (0-25.1); HYALINE CASTS 2 /uL (0-3.1); URINE APPEARANCE CLEAR; URINE BACTERIA 2950 /uL (0-1359); URINE BILIRUBIN NEGATIVE (NEGATIVE); URINE COLOR YELLOW; URINE GLUCOSE (UA) NEGATIVE (NEGATIVE); URINE KETONE NEGATIVE (NEGATIVE); URINE LEUK ESTERASE 3+ (NEGATIVE); URINE NITRITE NEGATIVE (NEGATIVE); URINE PROTEIN NEGATIVE (NEGATIVE); URINE RBC 10 /uL (0-23.9); URINE WBC 47 /uL (0-25.8)
[2020-09-12] MEDS ORDERED: TAMSULOSIN HCL 0.4 MG CAP PO ONE (22:52)
[2020-09-12] MEDS ORDERED: CEFTRIAXONE 1 GM in DEXTROSE 5%-WATER - 50 ML IVPB ONE (22:52)
[2020-09-12] MEDS ORDERED: CEFTRIAXONE 1 GM/50 ML BAG ONE (23:07)
[2020-09-12] MEDS ORDERED: TAMSULOSIN HCL 0.4 MG CAP ONE (23:09)
[2020-09-13] MEDS: GABAPENTIN 300 MG CAPSULE PO SCH ×3 (06:57→21:31)
[2020-09-13 10:35] LABS: BASO % 0.8 % (0-2.0); EOS % 1.2 % (0-4.5); HEMATOCRIT 42.8 % (35.4-49); HEMOGLOBIN 13.9 GM/dL (11.7-16.9); LYMPH % 12.1 % (8-40); MCH 31.6 pg (25.7-33.7); MCHC 32.4 g/dl (32.0-35.9); MEAN CELL VOLUME 97.4 fl (80-96); MEAN PLT VOLUME 9.4 fl (7.5-11.1); MONO % 7.3 % (3.8-10.2); NEUT % 78.6 % (42.8-82.8); PLATELET COUNT 118 10^3/uL (134-434); RDW 14.1 % (11.9-15.9); WHITE BLOOD COUNT 6.2 K/mm3 (4.0-10.0)
[2020-09-13 10:58] LABS: BLOOD UREA NITROGEN 23.4 mg/dL (7-18); CALCIUM 8.3 mg/dL (8.5-10.1)
[2020-09-13 10:59] LABS: MAGNESIUM 2.3 mg/dL (1.8-2.4)
[2020-09-13 11:01] LABS: CREATININE 0.9 mg/dL (0.55-1.3)
[2020-09-13 11:02] LABS: PHOSPHOROUS 3.4 mg/dL (2.5-4.9)
[2020-09-13] MEDS ORDERED: cefTRIAXone SODIUM 1 GM VIAL ONE (11:06)
[2020-09-13] MEDS ORDERED: DEXTROSE 5%-WATER - 50 ML IVPB ONE (11:07)
[2020-09-13] MEDS: CEFTRIAXONE 1 GM in DEXTROSE 5%-WATER - 50 ML IVPB SCH (11:11)
[2020-09-13] MEDS: ESCITALOPRAM OXALATE 10 MG TABLET PO SCH (11:16)
[2020-09-13] MEDS: ENOXAPARIN NA (PORCINE) 40 MG/0.4 ML DISP.SYRIN SQ SCH (11:16)
[2020-09-14] MEDS: GABAPENTIN 300 MG CAPSULE PO SCH ×3 (06:20→21:39)
[2020-09-14] MEDS ORDERED: cefTRIAXone SODIUM 1 GM VIAL ONE (09:25)
[2020-09-14] MEDS ORDERED: DEXTROSE 5%-WATER - 50 ML IVPB ONE (09:26)
[2020-09-14] MEDS: CEFTRIAXONE 1 GM in DEXTROSE 5%-WATER - 50 ML IVPB SCH (09:30)
[2020-09-14] MEDS: ENOXAPARIN NA (PORCINE) 40 MG/0.4 ML DISP.SYRIN SQ SCH (09:30)
[2020-09-14] MEDS: ESCITALOPRAM OXALATE 10 MG TABLET PO SCH (09:30)
[2020-09-14 13:31] VITALS: BMI 20.6
[2020-09-15] MEDS: GABAPENTIN 300 MG CAPSULE PO SCH ×2 (05:59→13:30)
[2020-09-15 08:41] LABS: BASO % 0.9 % (0-2.0); EOS % 1.7 % (0-4.5); HEMATOCRIT 43.5 % (35.4-49); HEMOGLOBIN 14.3 GM/dL (11.7-16.9); LYMPH % 13.6 % (8-40); MCH 31.9 pg (25.7-33.7); MCHC 32.9 g/dl (32.0-35.9); MEAN CELL VOLUME 96.9 fl (80-96); MEAN PLT VOLUME 9.1 fl (7.5-11.1); MONO % 8.3 % (3.8-10.2); NEUT % 75.5 % (42.8-82.8); PLATELET COUNT 118 10^3/uL (134-434); RBC 4.49 M/mm3 (4.00-5.60); RDW 14.3 % (11.9-15.9); WHITE BLOOD COUNT 6.5 K/mm3 (4.0-10.0)
[2020-09-15 08:59] LABS: ALBUMIN 2.8 g/dl (3.4-5.0); BLOOD UREA NITROGEN 21.4 mg/dL (7-18); CALCIUM 8.5 mg/dL (8.5-10.1)
[2020-09-15 09:01] LABS: MAGNESIUM 2.3 mg/dL (1.8-2.4)
[2020-09-15 09:05] LABS: BILIRUBIN,TOTAL 0.6 mg/dL (0.2-1); TOT PROT 5.6 g/dl (6.4-8.2)
[2020-09-15 09:55] VITALS: BP 103/56; TEMP 98.3
[2020-09-15] MEDS: ESCITALOPRAM OXALATE 10 MG TABLET PO SCH (10:00)
[2020-09-15] MEDS: ENOXAPARIN NA (PORCINE) 40 MG/0.4 ML DISP.SYRIN SQ SCH (10:00)
[2020-09-15 11:52] VITALS: PULSE 72
== END 2020-09-15 18:00 | disposition home or self-care (01) | DRG 92 ==
LOC: JER 14:43 → JERBED 19:25 → J6S 09-13 01:18 → OBSVTOIN 09-13 13:05
PROVIDERS: ADMIT Internal Medicine; ATTEND Internal Medicine
PROC: 0HQ0XZZ Repair Scalp Skin, External Approach (ICD-10-PCS; principal; 2020-09-12)
DX: R26.9 Unspecified abnormalities of gait and mobility (principal); N39.0 Urinary tract infection, site not specified; G10 Huntington's disease; R64 Cachexia; S01.01XA Laceration without foreign body of scalp, initial encounter; Z68.20 Body mass index [BMI] 20.0-20.9, adult; N31.9 Neuromuscular dysfunction of bladder, unspecified; J44.9 Chronic obstructive pulmonary disease, unspecified; G24.01 Drug induced subacute dyskinesia; R33.9 Retention of urine, unspecified; R53.1 Weakness; W01.0XXA Fall on same level from slipping, tripping and stumbling without subsequent striking against object, initial encounter; N40.1 Benign prostatic hyperplasia with lower urinary tract symptoms; R33.8 Other retention of urine; G25.81 Restless legs syndrome; K44.9 Diaphragmatic hernia without obstruction or gangrene; M50.33 Other cervical disc degeneration, cervicothoracic region; F41.8 Other specified anxiety disorders; G62.9 Polyneuropathy, unspecified; K57.90 Diverticulosis of intestine, part unspecified, without perforation or abscess without bleeding; Y92.098 Other place in other non-institutional residence as the place of occurrence of the external cause
CPT/HCPCS: 36415; 70450-TC; 72100-TC-FY; 72125-TC; 72170-TC-FY; 72192-TC; 73700-TC-RT; 76775-TC; 76856-TC; 80048; 80053; 81003; 82607; 82746; 83735; 84100; 84443; 85025; 87086; 90715; 93005; 93010; 94761; 97116-GP; 97162-GP; 99285-25; C9803; G0378; U0003; U0005

== ENCOUNTER 2020-10-09 10:53 | Emergency (ER) | payer OTHER, BC ==
[2020-10-09 11:06] VITALS: TEMP 98.7; BMI 23.0
[2020-10-09] MEDS ORDERED: SODIUM CHLORIDE 0.9% 500 ML INFUS.BAG IV ONE (11:54)
[2020-10-09 12:53] LABS: EPI CELLS 13 /uL (0-25.1); HYALINE CASTS 64 /uL (0-3.1); PH,URINE 5.5 (5.0-8.0); URINE APPEARANCE TURBID; URINE BACTERIA 510 /uL (0-1359); URINE BILIRUBIN NEGATIVE (NEGATIVE); URINE COLOR DK YELLOW; URINE GLUCOSE (UA) NEGATIVE (NEGATIVE); URINE KETONE NEGATIVE (NEGATIVE); URINE LEUK ESTERASE 3+ (NEGATIVE); URINE NITRITE NEGATIVE (NEGATIVE); URINE PROTEIN 2+ (NEGATIVE); URINE UROBILINOGEN 0.2 mg/dL (0.2-1.0); URINE WBC 24133 /uL (0-25.8)
[2020-10-09 13:14] LABS: URINE RBC 4837.5 /uL (0-23.9)
[2020-10-09 13:25] LABS: EOS % 1.5 % (0-4.5); HEMATOCRIT 42.6 % (35.4-49); HEMOGLOBIN 14.3 GM/dL (11.7-16.9); LYMPH % 10.9 % (8-40); MCHC 33.7 g/dl (32.0-35.9); MEAN PLT VOLUME 9.1 fl (7.5-11.1); MONO % 7.2 % (3.8-10.2); NEUT % 79.4 % (42.8-82.8); PLATELET COUNT 156 10^3/uL (134-434); RBC 4.34 M/mm3 (4.00-5.60); RDW 13.8 % (11.9-15.9); WHITE BLOOD COUNT 8.7 K/mm3 (4.0-10.0)
[2020-10-09 14:38] LABS: CALCIUM 8.6 mg/dL (8.5-10.1)
[2020-10-09 14:39] LABS: ALBUMIN 2.9 g/dl (3.4-5.0); BLOOD UREA NITROGEN 26.9 mg/dL (7-18)
[2020-10-09 14:42] LABS: CREATININE 1.1 mg/dL (0.55-1.3)
[2020-10-09 14:43] LABS: BILIRUBIN,TOTAL 0.3 mg/dL (0.2-1)
[2020-10-09 14:44] LABS: TOT PROT 6.1 g/dl (6.4-8.2)
[2020-10-09 15:42] VITALS: BP 110/65; PULSE 74
== END 2020-10-09 16:00 | disposition home or self-care (01) ==
LOC: JER 10:53
DX: N39.0 Urinary tract infection, site not specified (principal)
CPT/HCPCS: 36415; 80053; 81003; 85025; 87086; 87186; 93005; 93010; 99284-25

== ENCOUNTER 2020-10-16 18:07 | Inpatient (IN) | payer OTHER, BC ==
[2020-10-16 18:45] VITALS: BMI 21.7
[2020-10-16] MEDS ORDERED: ALBUTEROL SO4 2.5/IPRATROPIUM 0.5 INH SOL 3 ML VIAL.NEB. NEB ONE ×2 (19:08→19:10)
[2020-10-16] MEDS ORDERED: ALBUTEROL SO4 2.5/IPRATROPIUM 0.5 INH SOL 3 ML VIAL.NEB. NEB SCH (19:15)
[2020-10-16] MEDS ORDERED: ALBUTEROL SO4 2.5/IPRATROPIUM 0.5 INH SOL 3 ML VIAL.NEB. NEB PRN (19:21)
[2020-10-16 20:04] LABS: BASO % 0.3 % (0-2.0); HEMATOCRIT 36.8 % (35.4-49); HEMOGLOBIN 12.3 GM/dL (11.7-16.9); LYMPH % 3.2 % (8-40); MCH 32.5 pg (25.7-33.7); MCHC 33.5 g/dl (32.0-35.9); MEAN CELL VOLUME 97.1 fl (80-96); MEAN PLT VOLUME 9.1 fl (7.5-11.1); NEUT % 88.5 % (42.8-82.8); PLATELET COUNT 146 10^3/uL (134-434); RBC 3.79 M/mm3 (4.00-5.60); RDW 14.5 % (11.9-15.9); WHITE BLOOD COUNT 14.2 K/mm3 (4.0-10.0)
[2020-10-16 20:22] LABS: CHLORIDE 109 mmol/L (98-107); SODIUM 140 mmol/L (136-145)
[2020-10-16 20:24] LABS: CALCIUM 8.2 mg/dL (8.5-10.1)
[2020-10-16 20:25] LABS: ALBUMIN 2.8 g/dl (3.4-5.0); ANION GAP 9 MMOL/L (8-16); BLOOD UREA NITROGEN 45.7 mg/dL (7-18); CO2 22 mmol/L (21-32); GLUCOSE,RANDOM 115 mg/dL (74-106); MAGNESIUM 2.9 mg/dL (1.8-2.4)
[2020-10-16 20:28] LABS: CREATININE 2.9 mg/dL (0.55-1.3); PHOSPHOROUS 3.6 mg/dL (2.5-4.9); SGOT/AST 9 U/L (15-37); SGPT/ALT 12 U/L (13-61)
[2020-10-16 20:29] LABS: BILIRUBIN,TOTAL 0.4 mg/dL (0.2-1)
[2020-10-16 20:31] LABS: ALK PHOS 76 U/L (45-117)
[2020-10-16 20:49] LABS: EPI CELLS 1 /uL (0-25.1); HYALINE CASTS 2 /uL (0-3.1); URINE APPEARANCE TURBID; URINE BILIRUBIN NEGATIVE (NEGATIVE); URINE COLOR YELLOW; URINE GLUCOSE (UA) NEGATIVE (NEGATIVE); URINE KETONE NEGATIVE (NEGATIVE); URINE LEUK ESTERASE 3+ (NEGATIVE); URINE NITRITE POSITIVE (NEGATIVE); URINE PROTEIN 3+ (NEGATIVE); URINE RBC 7816 /uL (0-23.9); URINE UROBILINOGEN 0.2 mg/dL (0.2-1.0); URINE WBC 4365 /uL (0-25.8)
[2020-10-16] MEDS ORDERED: PIPERACILLIN/TAZOB 2.25 GM 2.25 GM in DEXTROSE 5%-WATER - 50 ML IVPB ONE (21:09)
[2020-10-16] MEDS ORDERED: VANCOMYCIN 1 GM in D5W (PRE-DOCKED) 1,000 MG/250 ML IVPB ONE (22:41)
[2020-10-16] MEDS ORDERED: VANCOMYCIN 1 GRAM (PRE-DOCKED) 1,000 MG/250 ML BAG IVPB ONE (22:53)
[2020-10-16] MEDS ORDERED: PIPERACILLIN/TAZOB 2.25 GM 2.25 GM/50 ML BAG IVPB ONE (22:53)
[2020-10-16] MEDS ORDERED: SODIUM CHLORIDE 0.9% 500 ML INFUS.BAG IV ONE (23:11)
[2020-10-16 23:27] LABS: URINE BACTERIA 329.9 /uL (0-1359)
[2020-10-17] MEDS ORDERED: SODIUM CHLORIDE 1,000 ML IV SCH (00:30)
[2020-10-17] MEDS ORDERED: ACETAMINOPHEN 325 MG TABLET (FP) PO PRN (01:14)
[2020-10-17] MEDS ORDERED: ALBUTEROL SO4 2.5/IPRATROPIUM 0.5 INH SOL 3 ML VIAL.NEB. NEB ONE ×2 (01:15→01:36)
[2020-10-17] MEDS ORDERED: ALBUTEROL SO4 HFA INHALER IH PRN (03:06)
[2020-10-17] MEDS ORDERED: HEPARIN NA (PORCINE) 5,000 UNITS/ML 1ML VIAL SQ SCH (06:00)
[2020-10-17] MEDS: HEPARIN NA (PORCINE) 5,000 UNITS/ML 1ML VIAL SQ SCH ×4 (06:36→21:45)
[2020-10-17] MEDS: methylPREDNISolone NA SUCC 40 MG/1 ML VIAL IVPUSH SCH ×3 (06:37→17:25)
[2020-10-17] MEDS ORDERED: PIPERACILLIN/TAZOB 2.25 GM 2.25 GM in DEXTROSE 5%-WATER - 50 ML IVPB SCH (08:00)
[2020-10-17 08:13] LABS: HEMATOCRIT 32.4 % (35.4-49); HEMOGLOBIN 10.9 GM/dL (11.7-16.9); MCH 32.7 pg (25.7-33.7); MCHC 33.6 g/dl (32.0-35.9); MEAN CELL VOLUME 97.3 fl (80-96); MEAN PLT VOLUME 8.6 fl (7.5-11.1); PLATELET COUNT 123 10^3/uL (134-434); RBC 3.33 M/mm3 (4.00-5.60); RDW 14.1 % (11.9-15.9); WHITE BLOOD COUNT 11.6 K/mm3 (4.0-10.0)
[2020-10-17 08:37] LABS: CALCIUM 7.8 mg/dL (8.5-10.1)
[2020-10-17 08:38] LABS: ALBUMIN 2.3 g/dl (3.4-5.0); BLOOD UREA NITROGEN 33.4 mg/dL (7-18); MAGNESIUM 2.7 mg/dL (1.8-2.4)
[2020-10-17 08:41] LABS: CREATININE 1.7 mg/dL (0.55-1.3); PHOSPHOROUS 3.3 mg/dL (2.5-4.9)
[2020-10-17] MEDS ORDERED: PIPERACILLIN/TAZOBACTAM 2.25 GM VIAL IVPB ONE ×4 (08:41→20:11)
[2020-10-17] MEDS ORDERED: DEXTROSE 5%-WATER - 50 ML IVPB ONE ×4 (08:41→20:11)
[2020-10-17 08:43] LABS: BILIRUBIN,TOTAL 0.5 mg/dL (0.2-1)
[2020-10-17] MEDS: POLYETHYLENE GLYCOL (HEALTHYLAX) 3350 17 GM PACKET PO SCH (10:05)
[2020-10-17] MEDS: ESCITALOPRAM OXALATE 10 MG TABLET PO SCH (10:05)
[2020-10-17] MEDS ORDERED: SODIUM CHLORIDE 0.45% 1,000 ML IV SCH (13:15)
[2020-10-17 13:28] LABS: INR 1.24 (0.83-1.09); PROTHROMBIN TIME (PATIENT) 14.9 SEC (9.7-13.0)
[2020-10-17 13:30] LABS: ACTIVATED PTT 25.5 SECONDS (25.2-36.5)
[2020-10-17] MEDS: BUDESONIDE/FORMETEROL FUMARATE 80/4.5 mcg INHALER IH SCH ×2 (13:42→21:43)
[2020-10-17] MEDS: PIPERACILLIN/TAZOB 2.25 GM 2.25 GM in DEXTROSE 5%-WATER - 50 ML IVPB SCH ×2 (15:57→21:44)
[2020-10-18] MEDS ORDERED: PIPERACILLIN/TAZOBACTAM 2.25 GM VIAL IVPB ONE ×4 (03:50→19:28)
[2020-10-18] MEDS ORDERED: DEXTROSE 5%-WATER - 50 ML IVPB ONE ×3 (03:50→19:28)
[2020-10-18] MEDS: PIPERACILLIN/TAZOB 2.25 GM 2.25 GM in DEXTROSE 5%-WATER - 50 ML IVPB SCH ×4 (04:22→21:40)
[2020-10-18] MEDS: methylPREDNISolone NA SUCC 40 MG/1 ML VIAL IVPUSH SCH ×3 (04:22→18:07)
[2020-10-18 07:27] LABS: BASO % 0.3 % (0-2.0); HEMATOCRIT 35.2 % (35.4-49); HEMOGLOBIN 11.9 GM/dL (11.7-16.9); LYMPH % 3.5 % (8-40); MCH 32.9 pg (25.7-33.7); MCHC 33.8 g/dl (32.0-35.9); MEAN CELL VOLUME 97.3 fl (80-96); MEAN PLT VOLUME 9.1 fl (7.5-11.1); MONO % 3.7 % (3.8-10.2); NEUT % 92.5 % (42.8-82.8); PLATELET COUNT 159 10^3/uL (134-434); RBC 3.62 M/mm3 (4.00-5.60); RDW 14.3 % (11.9-15.9); WHITE BLOOD COUNT 10.4 K/mm3 (4.0-10.0)
[2020-10-18 07:49] LABS: ALBUMIN 2.3 g/dl (3.4-5.0); BLOOD UREA NITROGEN 29.3 mg/dL (7-18); CALCIUM 8.1 mg/dL (8.5-10.1)
[2020-10-18 07:53] LABS: CREATININE 1.1 mg/dL (0.55-1.3)
[2020-10-18 07:54] LABS: BILIRUBIN,TOTAL 0.3 mg/dL (0.2-1); TOT PROT 5.2 g/dl (6.4-8.2)
[2020-10-18] MEDS ORDERED: PIPERACILLIN/TAZOB 2.25 GM 2.25 GM in DEXTROSE 5%-WATER - 50 ML IVPB SCH (10:00)
[2020-10-18] MEDS: POLYETHYLENE GLYCOL (HEALTHYLAX) 3350 17 GM PACKET PO SCH (10:07)
[2020-10-18] MEDS: ESCITALOPRAM OXALATE 10 MG TABLET PO SCH (10:07)
[2020-10-18] MEDS: BUDESONIDE/FORMETEROL FUMARATE 80/4.5 mcg INHALER IH SCH ×2 (10:08→21:41)
[2020-10-18] MEDS: HEPARIN NA (PORCINE) 5,000 UNITS/ML 1ML VIAL SQ SCH ×2 (14:13→21:40)
[2020-10-19] MEDS: methylPREDNISolone NA SUCC 40 MG/1 ML VIAL IVPUSH SCH ×2 (04:58→10:05)
[2020-10-19] MEDS: PIPERACILLIN/TAZOB 2.25 GM 2.25 GM in DEXTROSE 5%-WATER - 50 ML IVPB SCH ×4 (06:35→20:21)
[2020-10-19] MEDS: HEPARIN NA (PORCINE) 5,000 UNITS/ML 1ML VIAL SQ SCH ×3 (06:36→21:05)
[2020-10-19] MEDS ORDERED: DEXTROSE 5%-WATER - 50 ML IVPB ONE ×3 (09:28→20:00)
[2020-10-19] MEDS ORDERED: PIPERACILLIN/TAZOBACTAM 2.25 GM VIAL IVPB ONE ×3 (09:28→20:00)
[2020-10-19] MEDS: ESCITALOPRAM OXALATE 10 MG TABLET PO SCH (10:05)
[2020-10-19] MEDS: POLYETHYLENE GLYCOL (HEALTHYLAX) 3350 17 GM PACKET PO SCH (10:05)
[2020-10-19] MEDS: BUDESONIDE/FORMETEROL FUMARATE 80/4.5 mcg INHALER IH SCH ×2 (10:05→21:05)
[2020-10-19] MEDS: predniSONE 20 MG TABLET (UD) PO SCH (13:21)
[2020-10-20] MEDS ORDERED: DEXTROSE 5%-WATER - 50 ML IVPB ONE ×3 (02:03→18:06)
[2020-10-20] MEDS ORDERED: PIPERACILLIN/TAZOBACTAM 2.25 GM VIAL IVPB ONE ×3 (02:03→13:14)
[2020-10-20] MEDS: PIPERACILLIN/TAZOB 2.25 GM 2.25 GM in DEXTROSE 5%-WATER - 50 ML IVPB SCH ×3 (02:05→14:21)
[2020-10-20] MEDS: HEPARIN NA (PORCINE) 5,000 UNITS/ML 1ML VIAL SQ SCH ×3 (05:44→21:08)
[2020-10-20 08:13] LABS: HEMATOCRIT 40.3 % (35.4-49); HEMOGLOBIN 13.6 GM/dL (11.7-16.9); MCH 32.9 pg (25.7-33.7); MCHC 33.7 g/dl (32.0-35.9); MEAN CELL VOLUME 97.7 fl (80-96); MEAN PLT VOLUME 8.8 fl (7.5-11.1); PLATELET COUNT 189 10^3/uL (134-434); RBC 4.12 M/mm3 (4.00-5.60); RDW 13.8 % (11.9-15.9); WHITE BLOOD COUNT 10.3 K/mm3 (4.0-10.0)
[2020-10-20 08:38] LABS: ALBUMIN 2.5 g/dl (3.4-5.0); CALCIUM 8.6 mg/dL (8.5-10.1)
[2020-10-20 08:41] LABS: CREATININE 1.2 mg/dL (0.55-1.3)
[2020-10-20 08:43] LABS: BILIRUBIN,TOTAL 0.5 mg/dL (0.2-1); TOT PROT 5.6 g/dl (6.4-8.2)
[2020-10-20] MEDS: POLYETHYLENE GLYCOL (HEALTHYLAX) 3350 17 GM PACKET PO SCH (09:16)
[2020-10-20] MEDS: ESCITALOPRAM OXALATE 10 MG TABLET PO SCH (09:16)
[2020-10-20] MEDS: BUDESONIDE/FORMETEROL FUMARATE 80/4.5 mcg INHALER IH SCH ×2 (09:16→21:08)
[2020-10-20] MEDS: predniSONE 20 MG TABLET (UD) PO SCH (09:16)
[2020-10-20 10:01] LABS: ANISOCYTOSIS 0; HELMET CELLS 0; HOWELL-JOLLY BODIES 0; MACROCYTOSIS 0; OVALOCYTE 0; PLATELET ESTIMATE NORMAL; ROULEAU 0; SICKELED CELLS 0; TARGET CELLS 0; TEAR DROP CELLS 0; TOXIC GRANULATION 0
[2020-10-20] MEDS ORDERED: PIPERACILLIN/TAZOBACTAM 3.375 GM VIAL IVPB ONE (18:06)
[2020-10-20] MEDS: PIPERACILLIN/TAZOB 3.375 GM 3.375 GM in DEXTROSE 5%-WATER - 50 ML IVPB SCH (18:15)
[2020-10-21] MEDS ORDERED: DEXTROSE 5%-WATER - 50 ML IVPB ONE ×3 (01:07→16:32)
[2020-10-21] MEDS ORDERED: PIPERACILLIN/TAZOBACTAM 3.375 GM VIAL IVPB ONE ×3 (01:07→16:32)
[2020-10-21] MEDS: PIPERACILLIN/TAZOB 3.375 GM 3.375 GM in DEXTROSE 5%-WATER - 50 ML IVPB SCH ×3 (01:11→17:57)
[2020-10-21] MEDS: HEPARIN NA (PORCINE) 5,000 UNITS/ML 1ML VIAL SQ SCH ×2 (05:23→13:59)
[2020-10-21 05:25] VITALS: TEMP 97.9
[2020-10-21] MEDS ORDERED: POLYETHYLENE GLYCOL (HEALTHYLAX) 3350 17 GM PACKET PO SCH (08:15)
[2020-10-21] MEDS ORDERED: TAMSULOSIN HCL 0.4 MG CAP PO SCH (08:30)
[2020-10-21] MEDS: ESCITALOPRAM OXALATE 10 MG TABLET PO SCH (09:27)
[2020-10-21] MEDS: BUDESONIDE/FORMETEROL FUMARATE 80/4.5 mcg INHALER IH SCH (09:27)
[2020-10-21 18:42] VITALS: BP 111/69; PULSE 69
== END 2020-10-21 21:25 | DRG 699 ==
LOC: JER 18:07 → JERBED 22:42 → J4W 10-17 05:07
PROVIDERS: ADMIT Internal Medicine
DX: N99.0 Postprocedural (acute) (chronic) kidney failure (principal); N17.9 Acute kidney failure, unspecified; J44.1 Chronic obstructive pulmonary disease with (acute) exacerbation; J90 Pleural effusion, not elsewhere classified; J98.11 Atelectasis; N39.0 Urinary tract infection, site not specified; N13.30 Unspecified hydronephrosis; F32.9 Major depressive disorder, single episode, unspecified; F03.90 Unspecified dementia, unspecified severity, without behavioral disturbance, psychotic disturbance, mood disturbance, and anxiety; N18.9 Chronic kidney disease, unspecified; B96.5 Pseudomonas (aeruginosa) (mallei) (pseudomallei) as the cause of diseases classified elsewhere; K44.9 Diaphragmatic hernia without obstruction or gangrene; N20.0 Calculus of kidney; Y83.9 Surgical procedure, unspecified as the cause of abnormal reaction of the patient, or of later complication, without mention of misadventure at the time of the procedure
CPT/HCPCS: 36415; 71045-TC-FY; 71250-TC; 72131-TC; 74176-TC; 76775-TC; 80053; 81003; 82550; 83605; 83735; 84100; 84484; 85025; 85027; 85379; 85610; 85730; 86850; 86900; 86901; 87040; 87086; 87186; 93005; 93010; 94010; 94150; 97116-GP; 97161-GP; 99285-25; C9803; J1644; U0003; U0005